=== PATIENT | female | born 1985 | race Caucasian/White ===

== ENCOUNTER 2016-10-09 16:10 | Emergency (ER) | payer OTHER ==
[~2016-10-09] VITALS: Ht 154.9 cm; Wt 54.4 kg
[~2016-10-09 16:10] MED LIST: ALPR0.25 PO
[2016-10-09 16:17] VITALS: BP 157/84
[2016-10-09] MEDS ORDERED: PRED-220 PO (16:42)
[2016-10-09] MEDS ORDERED: FAMO-63 PO (16:42)
--- NOTE | 2016-10-09 16:42 | PHYS DOC ---
Past Medical History Past Medical History: Anxiety, Seizure, Other Additional Past Medical Histor: BURSITIS, PANIC ATTACKS Past Surgical History: Other Additional Past Surgical Histo: CONE BIOPSY Additional Information: 3/4-1 PACK/DAY Alcohol Use: None Drug Use: None Adult General Chief Complaint Chief Complaint: SKIN RASH/ABSCESS [facility] HPI Patient is a 30 year old female with history of anxiety and seizures who presents today with an allergic reaction to possibly clindamycin. Patient states she was put on clindamycin by her dentist on September 29, 2016 for dental infection. Patient states yesterday she broke out in a rash. She tried to call her PCP who requested her to come to the ED to be evaluated. Patient denies any anaphylactic reaction including difficulty breathing swallowing or tongue or throat swelling. Review of Systems Review of Systems Constitutional: Denies fever or chills [] Eyes: Denies change in visual acuity, redness, or eye pain [] HENT: Denies nasal congestion or sore throat [] Respiratory: Denies cough or shortness of breath [] Cardiovascular: No additional information not addressed in HPI [] GI: Denies abdominal pain, nausea, vomiting, bloody stools or diarrhea [] : Denies dysuria or hematuria [] Musculoskeletal: Denies back pain or joint pain [] Integument: rash Neurologic: Denies headache, focal weakness or sensory changes [] Endocrine: Denies polyuria or polydipsia [] Current Medications Current Medications Current Medications Medications (Trade) Dose Ordered Sig/Irena Start Time Stop Time Status Last Admin Dose Admin Diphenhydramine HCl (Benadryl) 50 mg 1X ONCE 10/09/16 16:45 10/09/16 16:46 Famotidine (Pepcid) 20 mg 1X ONCE 10/09/16 16:45 10/09/16 16:46 Prednisone (Prednisone) 60 mg 1X ONCE 10/09/16 16:45 10/09/16 16:46 Allergies Allergies Allergies Coded Allergies Type Severity Reaction Last Updated Verified No Known Drug Allergies 01/26/14 No Physical Exam Physical Exam Constitutional: Well developed, well nourished, no acute distress, non-toxic appearance. [] HENT: Normocephalic, atraumatic, bilateral external ears normal, oropharynx moist, no oral exudates, nose normal. [] Eyes: PERRLA, EOMI, conjunctiva normal, no discharge. [] Neck: Normal range of motion, no tenderness, supple, no stridor. [] Cardiovascular:Heart rate regular rhythm, no murmur [] Lungs & Thorax: Bilateral breath sounds clear to auscultation [] Abdomen: Bowel sounds normal, soft, no tenderness, no masses, no pulsatile masses. [] Skin: Patient is covered with moderate amount of fine erythematous papular rash throughout her body from her neck all the way down to the lower extremities. Back: No tenderness, no CVA tenderness. [] Extremities: No tenderness, no cyanosis, no clubbing, ROM intact, no edema. [] Neurologic: Alert and oriented X 3, normal motor function, normal sensory function, no focal deficits noted. [] Psychologic: Affect normal, judgement normal, mood normal. [] Current Patient Data Vital Signs Vital Signs Date Time Temp Pulse Resp B/P (MAP) Pulse Ox O2 Delivery O2 Flow Rate FiO2 10/09/16 16:17 98.3 92 18 100 Room Air 98.3 EKG EKG [] Radiology/Procedures Radiology/Procedures [] Course & Med Decision Making Course & Med Decision Making Pertinent Labs and Imaging studies reviewed. (See chart for details) Patient has a rash throughout her body from an allergic reaction to clindamycin which she was started for dental infection. She only has less than a day left to complete the medication. Instructed patient to stop taking the clindamycin. She was discharged with prednisone, Benadryl and Pepcid. Follow up with PCP in 1 -2 weeks as needed. Provided return precautions and discharged in stable condition. Dragon Disclaimer Dragon Disclaimer This electronic medical record was generated, in whole or in part, using a voice recognition dictation system. Departure Departure Impression: Primary Impression: Allergic reaction caused by a drug Disposition: HOME, SELF-CARE Condition: STABLE Referrals: FRANK ARAIZA (PCP) Follow-up with the primary care doctor in 1-2 weeks Patient Instructions: Drug Allergy Additional Instructions: You were seen for an allergic reaction to possibly clindamycin. Stop taking this medication. Take the prescribed prednisone as ordered. Take Benadryl every 4 hours as needed for this rash and Pepcid every day until the rash clears out. Follow-up with your doctor in 1-2 weeks. Scripts Famotidine (PEPCID) 20 Mg Tablet 20 MG PO DAILY, #10 TAB Prov: SWATI BAY APRN 10/09/16 Prednisone (PREDNISONE) 10 Mg Tablet 10 MG PO UD for PREDNISONE TAPER, #39 TAB 0 Refills Take 3 tablets by mouth twice a day for 3 days, then take 2 tablets by mouth twice a day for 3 days, then take 1 tablet by mouth twice a day for 3 days, then take 1 tablet by mouth daily x 3 days, then stop. Prov: SWATI BAY APRN 10/09/16 Problem Qualifiers Primary Impression: Allergic reaction caused by a drug Encounter type: initial encounter Qualified Codes: T78.40XA - Allergy, unspecified, initial encounter SWATI BAY APRN Oct 09, 2016 16:42
[2016-10-09] MEDS ORDERED: predniSONE 20 MG TABLET PO ONE (16:45)
[2016-10-09] MEDS ORDERED: FAMOTIDINE 20 MG TABLET. PO ONE (16:45)
[2016-10-09] MEDS ORDERED: diphenhydrAMINE HCL 25 MG CAPSULE PO ONE (16:45)
== END 2016-10-09 16:46 | disposition home or self-care (01) ==
LOC: ER 16:10
DX: L27.0 Generalized skin eruption due to drugs and medicaments taken internally (principal); T36.0X5A Adverse effect of penicillins, initial encounter; F41.0 Panic disorder [episodic paroxysmal anxiety]; F17.200 Nicotine dependence, unspecified, uncomplicated; Y92.89 Other specified places as the place of occurrence of the external cause
CPT/HCPCS: 99284; J7512; Q0163

== ENCOUNTER 2018-01-22 19:48 | Emergency (ER) | payer OTHER ==
[~2018-01-22] VITALS: Ht 157.5 cm; Wt 46.7 kg
[~2018-01-22 19:48] MED LIST changes: +FAMO-63 PO; +PRED-220 PO
[2018-01-22 20:00] VITALS: BP 129/94
--- NOTE | 2018-01-22 20:49 | PHYS DOC ---
Past Medical History Past Medical History: Anxiety, Seizure, Other Additional Past Medical Histor: BURSITIS, PANIC ATTACKS Past Surgical History: Other Additional Past Surgical Histo: CONE BIOPSY Alcohol Use: None Drug Use: None Adult General Chief Complaint Chief Complaint: ANXIETY/PANIC ATTACK HPI HPI Patient is a 32 year old female who presents with anxiety. The patient states that she has been under many stressful life changes recently. She has also had hypertension since she delivered her last child. The patient states that she has 4 children at home and it is stressful. She states that she just started working a job outside of the home. She states that she was extremely concerned about her blood pressure today and was taking repeated measurements. She then started to have a panic attack worrying about how high her blood pressure was. She was just started on lisinopril. She states that she called her repeatedly to come home from work because she was worried about being home with the children. He was not supportive of her worries. She then decided she needed to come to the hospital to be checked. She denies chest pain, shortness of breath or diaphoresis. Review of Systems Review of Systems Constitutional: Denies fever or chills [] Eyes: Denies change in visual acuity, redness, or eye pain [] HENT: Denies nasal congestion or sore throat [] Respiratory: Denies cough or shortness of breath [] Cardiovascular: No additional information not addressed in HPI [] GI: Denies abdominal pain, nausea, vomiting, bloody stools or diarrhea [] : Denies dysuria or hematuria [] Musculoskeletal: Denies back pain or joint pain [] Integument: Denies rash or skin lesions [] Neurologic: Denies headache, focal weakness or sensory changes [] Endocrine: Denies polyuria or polydipsia [] All other systems were reviewed and found to be within normal limits, except as documented in this note. Allergies Allergies Allergies Coded Allergies Type Severity Reaction Last Updated Verified clindamycin Allergy Intermediate 01/22/18 Yes Physical Exam Physical Exam Constitutional: Well developed, well nourished, no acute distress, non-toxic appearance. [] HENT: Normocephalic, atraumatic, bilateral external ears normal, oropharynx moist, no oral exudates, nose normal. [] Eyes: PERRLA, EOMI, conjunctiva normal, no discharge. [] Neck: Normal range of motion, no tenderness, supple, no stridor. [] Cardiovascular:Heart rate regular rhythm, no murmur [] Lungs & Thorax: Bilateral breath sounds clear to auscultation [] Abdomen: Bowel sounds normal, soft, no tenderness, no masses, no pulsatile masses. [] Skin: Warm, dry, no erythema, no rash. [] Back: No tenderness, no CVA tenderness. [] Extremities: No tenderness, no cyanosis, no clubbing, ROM intact, no edema. [] Neurologic: Alert and oriented X 3, normal motor function, normal sensory function, no focal deficits noted. [] Psychologic: The patient is very anxious and seems to have slightly racing thoughts. She states that she does believe that this is a panic attack. Current Patient Data Vital Signs Vital Signs Date Time Temp Pulse Resp B/P (MAP) Pulse Ox O2 Delivery O2 Flow Rate FiO2 01/22/18 20:00 98.6 79 22 129/94 (106) 100 Room Air 98.6 EKG EKG [] Radiology/Procedures Radiology/Procedures [] Course & Med Decision Making Course & Med Decision Making Pertinent Labs and Imaging studies reviewed. (See chart for details) []The patient and I had a long discussion about self-care and she is in agreement with seeing a counselor to help control her levels of stress. She also agrees that she does have repeated checking behaviors such as taking her blood pressure multiple times throughout the day. She states that if she does get an elevated reading she then becomes very anxious and feels like she needs to repeat the blood pressure checks over and over again. We discussed her following up at [facility] or with her primary care provider for referral to a counselor. She is in agreement with this plan. The patient does take Xanax at home scheduled for her anxiety. Dragon Disclaimer Dragon Disclaimer This electronic medical record was generated, in whole or in part, using a voice recognition dictation system. Departure Departure Impression: Primary Impression: Anxiety Disposition: 01 HOME, SELF-CARE Condition: STABLE Referrals: UNKNOWN PCP NAME (PCP) Patient Instructions: Anxiety and Panic Attacks Additional Instructions: Continue your at home medications. Follow up with the resources that we discussed such as [facility] or reach out to your primary care provider for a referral. If worsening please return to the emergency department. DAVID LEE APRN Jan 22, 2018 20:49
== END 2018-01-22 20:55 | disposition home or self-care (01) ==
LOC: ER 19:48
DX: F41.9 Anxiety disorder, unspecified (principal); Z88.1 Allergy status to other antibiotic agents
CPT/HCPCS: 99284